=== PATIENT | female | born 1980 | race American Indian/Alaskan Native ===

== ENCOUNTER 2018-12-21 09:39 | Outpatient (CLI) | payer OTHER ==
--- NOTE | 2018-12-25 08:29 | Mammography Report ---
DIGITAL SCREENING MAMMOGRAM WITH TOMOSYNTHESIS WITHOUT CAD, 12/21/2018 INDICATION: Routine Screening Mammography. SCREENING TECHNIQUE: Digital bilateral 2D and 3D mammography with tomosynthesis was obtained in the craniocau terese and mediolateral oblique projections. For technical reasons, Computer-Aided Detection analysis w as not utilized. COMPARISON: None available. FINDINGS: Breast Density: The breasts are heterogeneously dense, which may obscure small masses. There is no evidence of dominant mass, suspicious calcifications or architectural distortion in eithe r breast. IMPRESSION: No mammographic evidence of malignancy. Follow up recommendation: Routine yearly BI-RADS Category 1: Negative. A "normal" or negative report should not discourage follow up or biopsy of a clinically significant f inding. A written summary of these findings will be mailed to the patient. The patient will be entered into a mammography reporting system which will generate a reminder letter for the patient's next appointmen t at the appropriate interval. The [employer] recommends yearly mammograms starting at age 40 and continuing as l magda as a woman is in good health. Breast MRI is recommended for women with an approximate 20-25% or greater lifetime risk of breast cancer, including women with a strong family history of breast or ova rosario cancer or who have been treated for Hodgkin's disease. Signer Name: Eric Sargent MD Signed: 12/25/2018 8:25 AM Workstation Name: [id number]
--- NOTE | 2018-12-26 09:49 | Mammography Report ---
DIGITAL SCREENING MAMMOGRAM WITH TOMOSYNTHESIS WITHOUT CAD, 12/21/2018 INDICATION: Routine Screening Mammography. SCREENING TECHNIQUE: Digital bilateral 2D and 3D mammography with tomosynthesis was obtained in the craniocauda l and mediolateral oblique projections. For technical reasons, Computer-Aided Detection analysis was not utilized. COMPARISON: None available. FINDINGS: Breast Density: The breasts are heterogeneously dense, which may obscure small masses. There is no evidence of dominant mass, suspicious calcifications or architectural distortion in eithe r breast. IMPRESSION: No mammographic evidence of malignancy. Follow up recommendation: Routine yearly BI-RADS Category 1: Negative. A "normal" or negative report should not discourage follow up or biopsy of a clinically significant f inding. A written summary of these findings will be mailed to the patient. The patient will be entered into a mammography reporting system which will generate a reminder letter for the patient's next appointmen t at the appropriate interval. The [employer] recommends yearly mammograms starting at age 40 and continuing as l magda as a woman is in good health. Breast MRI is recommended for women with an approximate 20-25% or g reater lifetime risk of breast cancer, including women with a strong family history of breast or ovar anthony cancer or who have been treated for Hodgkin's disease. Signer Name: Eric Sargent MD Signed: 12/26/2018 9:45 AM Workstation Name: [id number]
== END 2018-12-21 09:40 | disposition home or self-care (01) ==
LOC: SPVWC 09:39
PROVIDERS: ATTEND Obstetrics & Gynecology
DX: Z12.31 Encounter for screening mammogram for malignant neoplasm of breast (principal)
CPT/HCPCS: 77063; 77067

== ENCOUNTER 2020-01-13 15:52 | Outpatient (CLI) | payer OTHER ==
--- NOTE | 2020-01-14 16:43 | Mammography Report ---
DIGITAL SCREENING MAMMOGRAM WITH CAD, 01/13/2020 INDICATION: Routine screening mammography. TECHNIQUE: Digital bilateral 2D mammography was obtained in the craniocaudal and mediolateral obliq ue projections. This examination was interpreted with the benefit of Computer-Aided Detection analysi s. COMPARISON: Prior mammogram 12/21/2018 FINDINGS: Breast Density: The breasts are extremely dense, which lowers the sensitivity of mammography. There is no evidence of dominant mass, suspicious calcifications or architectural distortion in eithe r breast. There is a stable biopsy clip seen in the left breast. There has been no significant change compared with the prior examination. IMPRESSION: Follow up recommendation: Routine yearly BI-RADS Category 2: Benign. A "normal" or negative report should not discourage follow up or biopsy of a clinically significant f inding. A written summary of these findings will be mailed to the patient. The patient will be entered into a mammography reporting system which will generate a reminder letter for the patient's next appointmen t at the appropriate interval. The [employer] recommends yearly mammograms starting at age 40 and continuing as l magda as a woman is in good health. Breast MRI is recommended for women with an approximate 20-25% or greater lifetime risk of breast cancer, including women with a strong family history of breast or ova rosario cancer or who have been treated for Hodgkin's disease. Signer Name: Taryn Fitzgerald MD Signed: 01/14/2020 8:59 AM Workstation Name: [email or web address]
== END 2020-01-13 15:53 | disposition home or self-care (01) ==
LOC: SPVWC 15:52
PROVIDERS: ATTEND Obstetrics & Gynecology
DX: Z12.31 Encounter for screening mammogram for malignant neoplasm of breast (principal)
CPT/HCPCS: 77067

== ENCOUNTER 2020-04-07 08:09 | Outpatient (CLI) | payer OTHER ==
--- NOTE | 2020-04-07 10:02 | Ultrasound Report ---
ULTRASOUND BREAST BILATERAL COMPLETE, 04/07/2020 CLINICAL INFORMATION / INDICATION: Bilateral breast pain. TECHNIQUE: Complete sonographic evaluation of all 4 quadrants and retroareolar region was performed. COMPARISON: Bilateral mammography 01/13/20. FINDINGS: RIGHT: There is a 7 mm circumscribed ovoid isoechoic solid intraductal nodule at the 7:00 position 1. 5 cm from the nipple. The lesion is wider than tall. There is significant internal vascularity on Dop pler exam. There is a 6.1 mm circumscribed solid nodule at the 5:00 position 2 cm from the nipple and 8.7 mm similar appearing solid nodule at the 6:00 position 2 cm from the nipple. There are small cys ts at the 7:00 position and 10:00 position, the largest of which measures less than 5 mm. There is mi ld ductal ectasia in the subareolar region. No pathologic adenopathy is seen. LEFT: There is a 4.3 mm circumscribed, lobulated isoechoic solid intraductal nodule in the subareolar region. The lesion is wider than tall. There is significant internal vascularity on Doppler exam. Th ere are multiple simple cysts in the left upper outer quadrant and inferior breast, the largest of wh ich measures approximately 9 mm at the 2:00 position. There is mild ductal ectasia in the subareolar region. No pathologic adenopathy is seen. IMPRESSION: 1. Small solid intraductal nodules in the left subareolar region and at the 7:00 position in the righ t breast near the areolar margin. The findings are likely related to papillomas. Biopsy of both lesio ns is recommended. 2. 2 similar-appearing solid nodules in the right breast are probably benign. A follow-up right breas t ultrasound is recommended in 6 months to document stability. Follow up recommendation: Surgical consult BI-RADS Category 4: Suspicious for Malignancy. BI-RADS Category 4A-low suspicion for malignancy. A normal or "negative" report should not preclude biopsy or follow-up of a clinically suspicious find ing. Signer Name: Terrell Harris MD Signed: 04/07/2020 9:57 AM Workstation Name: [email or web address]
== END 2020-04-07 08:10 | disposition home or self-care (01) ==
LOC: SPVWC 08:09
PROVIDERS: ATTEND Obstetrics & Gynecology
DX: N63.14 Unspecified lump in the right breast, lower inner quadrant (principal); N63.13 Unspecified lump in the right breast, lower outer quadrant; N63.24 Unspecified lump in the left breast, lower inner quadrant; N60.42 Mammary duct ectasia of left breast; N60.41 Mammary duct ectasia of right breast; N60.02 Solitary cyst of left breast; R92.8 Other abnormal and inconclusive findings on diagnostic imaging of breast

== ENCOUNTER 2020-04-16 09:35 | Outpatient (CLI) | payer OTHER ==
[2020-04-16] MEDS ORDERED: LIDOCAINE (1%) 10 MG/1 ML VIAL 20 ML MDV INFILTRATI NR (11:00)
[2020-04-16] MEDS ORDERED: LIDOCAINE (1%) 10 MG/1 ML VIAL 20 ML MDV ONE (11:16)
--- NOTE | 2020-04-16 12:41 | Mammography Report ---
ULTRASOUND GUIDED BILATERAL SUBAREOLAR BREAST BIOPSY, 04/16/2020 BILATERAL DIAGNOSTIC MAMMOGRAM CLINICAL INFORMATION / INDICATION: Patient with extremely dense breast tissue had recent ultrasound o n 04/07/2020 which demonstrated bilateral subareolar nodular densities which appear to be within the d ucts, here for biopsy. COMPARISON: Bilateral breast ultrasound from 04/07/2020 and bilateral screening mammogram from 020 PROCEDURE: Risks, benefits, and indications to the procedure were discussed with the patient in detail, includin g bleeding, infection, hematoma formation, and inadequate tissue sampling. The patient agreed to proc eed with both verbal and written consent. A timeout procedure was performed with two patient identifi ers. Each breast was prepped and draped in the usual sterile fashion. Lidocaine 1% was used for local anes thesia. Under direct ultrasound guidance, 3 14 gaugecore samples were obtained of each subareolar catherine ast nodule . A biopsy marker was then placed in each breast. Biopsy device was removed and hemostasi s achieved with manual pressure. A sterile dressing was applied to the skin. The patient tolerated the procedure without difficulty. No complications were encountered. Postbiopsy instructions were discussed with the patient and given in writing. Specimens were sent to pathology. The patient was then sent for a confirmatory mammogram to demonstrate adequate clip positioning in ea ch area in question. IMPRESSION: 1. Technically successful ultrasound guided bilateral breast biopsy. 2. Satisfactory positioning of each biopsy clip on the post procedure mammograms. Biopsy results are pending and will be reported in an addendum. Signer Name: Guerrero Mojica MD Signed: 04/16/2020 12:36 PM Workstation Name: [id number]
== END 2020-04-16 09:36 | disposition home or self-care (01) ==
LOC: US 09:35
PROVIDERS: ATTEND Obstetrics & Gynecology
DX: N63.21 Unspecified lump in the left breast, upper outer quadrant (principal); N63.13 Unspecified lump in the right breast, lower outer quadrant; N60.12 Diffuse cystic mastopathy of left breast; N60.11 Diffuse cystic mastopathy of right breast; N64.89 Other specified disorders of breast
CPT/HCPCS: 77066; 88305

== ENCOUNTER 2020-08-11 08:22 | Outpatient (CLI) | payer OTHER ==
--- NOTE | 2020-08-11 10:14 | Magnetic Resonance Report ---
MRI BREAST BILATERAL WITH AND WITHOUT CONTRAST, 08/11/2020 CLINICAL INFORMATION / INDICATION: ABNORMAL MAMMO R92.8/ BENIGN MAMMARY DYSPLASIA RIGHT N60.81/FIBR. History of previous benign bilateral breast biopsies with ultrasound guidance performed in March 21. TECHNIQUE: Axial T1 and T2-weighted fat sat images were obtained precontrast. Gadolinium-based contra st was injected intravenously and serial axial T1 weighted images with fat saturation were obtained. 3-D MIP projections, kinetic analysis, and subtraction imaging were utilized to evaluate. A dedicated 8-channel breast coil was used for image acquisition. COMPARISON: Ultrasound-guided bilateral breast biopsy performed on 04/16/2020. Bilateral breast ultras ound performed on 04/07/2020. Screening mammogram performed on 01/13/2020. FINDINGS: BREAST DENSITY: Extremely dense. BACKGROUND ENHANCEMENT: High level background enhancement within both breasts. RIGHT BREAST: A suspiciously enhancing mass with irregular margins is seen along the middle depth of the retroareolar region measuring 1.4 x 1.0 cm on image 286 of series 6. This mass is located 2.4 cm from the chest wall and 2.3 cm from the nipple. No other mass or suspicious none mass enhancement is identified. Expected postbiopsy changes are seen anteriorly along the 6:00 position. Subcentimeter cy sts are seen along the posterior depth 9:00 position. LEFT BREAST: No dominant mass or suspicious area of enhancement in the left breast. Expected postbiop sy changes are noted in the 7:00 position of the left breast anteriorly. There is a cyst in the 3:00 position anteriorly measuring 8 mm. AXILLAE: No pathologically enlarged axillary lymph nodes. ADDITIONAL FINDINGS: Limited imaging of the thorax and upper abdomen demonstrates no focal abnormalit y. IMPRESSION: Suspicious right breast mass as above. A limited right breast ultrasound focusing on the central righ t breast/retroareolar region and a diagnostic right mammogram with tomosynthesis and spot compression views is recommended for further evaluation. Follow up recommendation: Special View: Spot BI-RADS Category 0: Incomplete. Needs additional imaging evaluation and/or prior mammograms for aspen rison. Signer Name: Phong Mariscal MD Signed: 08/11/2020 10:09 AM Workstation Name: [id number]
== END 2020-08-11 08:23 | disposition home or self-care (01) ==
LOC: SPVIMAG 08:22
PROVIDERS: ATTEND Surgery
DX: N60.01 Solitary cyst of right breast (principal); N60.02 Solitary cyst of left breast; N60.81 Other benign mammary dysplasias of right breast; N60.32 Fibrosclerosis of left breast
CPT/HCPCS: A9575; C8908; 77049

== ENCOUNTER 2020-09-16 09:34 | Outpatient (CLI) | payer OTHER ==
--- NOTE | 2020-09-16 11:09 | Mammography Report ---
RIGHT DIGITAL DIAGNOSTIC MAMMOGRAM WITH CAD CONVENTIONAL, 09/16/2020 RIGHT LIMITED BREAST ULTRASOUND CLINICAL INFORMATION / INDICATION: Patient presents for further evaluation of an area of abnormal enh ancement in the right breast seen on recent MRI. ABNORMAL MAMMO R92.8 TECHNIQUE: Digital right mammographic imaging was performed. Spot compression views were obtained. Li mited ultrasound was performed. This examination was interpreted with the benefit of Computer-Aided D etection (CAD) analysis. COMPARISON: Breast MRI 08/11/2020 FINDINGS: Breast Density: The breasts are extremely dense, which lowers the sensitivity of mammography. MAMMOGRAPHIC FINDINGS: A biopsy clip is seen in the anterior lower inner quadrant of the right breast . There is no obvious mammographic abnormality to correspond with the enhancing lesion in the central right breast seen on recent MRI, though evaluation is degraded mammographically secondary to extreme ly dense fibroglandular tissue. Targeted ultrasound was performed for further evaluation. ULTRASOUND FINDINGS: Targeted ultrasound evaluation was performed of the area of interest. Targeted ultrasound of the subareolar right breast reveals duct ectasia with an associated intraductal lesion measuring up to approximately 7 x 6 x 4 mm. This appears to correspond with the site of abnormal enh ancement in the right breast seen on recent MRI. IMPRESSION: 1. Duct ectasia with an associated intraductal mass is seen in the subareolar right breast. This appe ars to correspond with the area of abnormal enhancement in the central right breast seen on recent MR I and is considered suspicious for malignancy. Ultrasound-guided biopsy is recommended. Follow up recommendation: Biopsy BI-RADS Category 4: Suspicious for Malignancy. A "normal" or negative report should not discourage follow up or biopsy of a clinically significant f inding. A written summary of these findings will be mailed to the patient. The patient will be entered into a mammography reporting system which will generate a reminder letter for the patient's next appointmen t at the appropriate interval. According to the [employer], yearly mammograms are recommended starting at age 40 and continuing as long as a woman is in good health. Breast MRI is recommended for women with an ector roximately 20-25% or greater lifetime risk of breast cancer, including women with a strong family his tory of breast or ovarian cancer and women who have been treated for Hodgkin's disease. Signer Name: Taryn Fitzgerald MD Signed: 09/16/2020 11:04 AM Workstation Name: [id number]
== END 2020-09-16 09:35 | disposition home or self-care (01) ==
LOC: SPVWC 09:34
PROVIDERS: ATTEND Surgery
DX: N60.41 Mammary duct ectasia of right breast (principal); N63.10 Unspecified lump in the right breast, unspecified quadrant; R92.8 Other abnormal and inconclusive findings on diagnostic imaging of breast

== ENCOUNTER 2020-09-29 10:23 | Outpatient (CLI) | payer OTHER ==
--- NOTE | 2020-10-02 16:56 | Ultrasound Report ---
Limited right breast Ultrasound HISTORY: ABNORMAL MAMMOGRAM. TECHNIQUE: Grayscale and color imaging performed. COMPARISON: Right breast ultrasound and diagnostic mammogram from 09/16/2020, as well as previous rig ht breast ultrasound from 04/16/2020 and an MRI of the breasts from 08/11/2020 FINDINGS: The subareolar intraductal papilloma which was previously biopsied and measures 7 mm is aga in demonstrated. MRI demonstrated an area of vague enhancement in the middle depth mid right breast a nd ultrasound imaging through this areas does not demonstrate any abnormality in this patient with de nse breast tissue. No biopsy was performed using ultrasound. IMPRESSION: 1. 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 2. Middle depth area of enhancement on the breast MRI is not demonstrated by ultrasound. Recommend fo llow-up MRI guided biopsy of this region. Signer Name: Guerrero Mojica MD Signed: 09/29/2020 11:33 AM Workstation Name: [id number]
== END 2020-09-29 10:24 | disposition home or self-care (01) ==
LOC: SPVWC 10:23
PROVIDERS: ATTEND Surgery
DX: D05.11 Intraductal carcinoma in situ of right breast (principal)

== ENCOUNTER 2020-10-27 14:24 | Outpatient (CLI) | payer OTHER ==
--- NOTE | 2020-10-28 09:16 | Magnetic Resonance Report ---
MRI GUIDED RIGHT BREAST BIOPSY, 10/27/2020 CLINICAL INFORMATION / INDICATION: Abnormal right MRI of the breast. COMPARISON: Previous breast MRI 08/11/2020 PROCEDURE: Risks, benefits, and indications to the procedure were discussed with the patient in detail, includin g bleeding, infection, hematoma formation, and inadequate tissue sampling. The patient agreed to proc eed with both verbal and written consent. A timeout procedure was performed with two patient identifi ers. The patient was placed in the prone position in the MRI suite and localizer imaging was obtained usin g an 8 channel breast coil. Sagittal pre and post gadolinium fat-saturated sequences were obtained. The targeted area of interest (middle depth right retroareolar) was then identified and coordinates w ere determined. The breast was cleansed and prepped in the usual sterile fashion. Lidocaine 1% with a nd without epinephrine was used for local anesthesia. A 9 gauge introducer sheath and stylette was th en advanced to the appropriate position from the lateral approach. The stylette was replaced with an obturator. Subsequent sagittal sequences were obtained to confirm satisfactory positioning of the sh eath. Multiple vacuum-assisted 9 gauge core samples were obtained in a round the clock fashion with a n [facility] biopsy device. Post-biopsy images confirm satisfactory tissue sampling. A biopsy clip was then deployed at the biopsy site and sheath was removed. Hemostasis achieved with manual pressure. A garret rile pressure dressing was applied to the skin. Post-biopsy mammogram was obtained. The patient tolerated the procedure without difficulty. No complications were encountered. Post-biopsy instructions were discussed with the patient and given in writing. IMPRESSION: 1. Technically successful MRI guided right breast biopsy. Biopsy results are pending and will be reported in an addendum. Signer Name: Citlaly Cates MD Signed: 10/28/2020 9:12 AM Workstation Name: [id number]
--- NOTE | 2020-10-29 08:17 | Mammography Report ---
DIGITAL DIAGNOSTIC MAMMOGRAM WITH CAD , 10/27/2020 CLINICAL INFORMATION / INDICATION: Postprocedure mammogram following right MRI guided biopsy TECHNIQUE: Digital right mammographic imaging was performed. This examination was interpreted with the benefit of Computer-aided Detection analysis. COMPARISON: Prior MRI 08/11/2020 and MRI guided biopsy performed earlier today FINDINGS: Breast Density: The breasts are extremely dense, which lowers the sensitivity of mammography. There is a biopsy clip related to the procedure related earlier today in the 9:00 location of the rig ht breast middle depth. This correlates well with biopsy site. There is a second biopsy clip and is 5:00 position of the right breast from older biopsy. IMPRESSION: Postprocedure mammogram following MRI guided biopsy. Follow up recommendation: Awaiting pathology results Post biopsy imaging. A "normal" or negative report should not discourage follow up or biopsy of a clinically significant f inding. A written summary of these findings will be mailed to the patient. The patient will be entered into a mammography reporting system which will generate a reminder letter for the patient's next appointmen t at the appropriate interval. According to the [employer], yearly mammograms are recommended starting at age 40 and continuing as long as a woman is in good health. Breast MRI is recommended for women with an ector roximately 20-25% or greater lifetime risk of breast cancer, including women with a strong family his tory of breast or ovarian cancer and women who have been treated for Hodgkin's disease. Signer Name: Citlaly Cates MD Signed: 10/29/2020 8:13 AM Workstation Name: [id number]
== END 2020-10-27 14:25 | disposition home or self-care (01) ==
LOC: SPVIMAG 14:24
PROVIDERS: ATTEND Surgery
DX: R92.8 Other abnormal and inconclusive findings on diagnostic imaging of breast (principal); Z79.899 Other long term (current) drug therapy
CPT/HCPCS: 19085; 77065; 88305; A4648; A9575

== ENCOUNTER 2021-07-07 14:30 | Outpatient (CLI) | payer OTHER ==
--- NOTE | 2021-07-09 09:45 | Mammography Report ---
DIGITAL SCREENING MAMMOGRAM WITH CAD, 07/07/2021 CLINICAL INFORMATION / INDICATION: Routine screening mammography. SCREENING MAMMO Z12.31 TECHNIQUE: Digital bilateral 2D mammography was obtained in the craniocaudal and mediolateral obliqu e projections. This examination was interpreted with the benefit of Computer-Aided Detection analysis . COMPARISON: 01/13/2020 and 12/21/2018 FINDINGS: Breast Density: The breasts are extremely dense, which lowers the sensitivity of mammography. No dominant mass, suspicious calcifications, or architectural distortion in either breast. Bilateral breast biopsy changes are present and scarring on the left. IMPRESSION: No mammographic evidence of malignancy. Follow up recommendation: Routine yearly BI-RADS Category 2: BENIGN. A "normal" or negative report should not discourage follow up or biopsy of a clinically significant f inding. A written summary of these findings will be mailed to the patient. The patient will be entered into a mammography reporting system which will generate a reminder letter for the patient's next appointmen t at the appropriate interval. The [employer] recommends yearly mammograms starting at age 40 and continuing as l magda as a woman is in good health. Breast MRI is recommended for women with an approximate 20-25% or greater lifetime risk of breast cancer, including women with a strong family history of breast or ova rosario cancer or who have been treated for Hodgkin's disease. Signer Name: Guerrero Mojica MD Signed: 07/09/2021 9:40 AM Workstation Name: [email or web address]
== END 2021-07-07 14:31 | disposition home or self-care (01) ==
LOC: SPVWC 14:30
PROVIDERS: ATTEND Obstetrics & Gynecology
DX: Z12.31 Encounter for screening mammogram for malignant neoplasm of breast (principal)
CPT/HCPCS: 77067